=== PATIENT | male | born 1975 | race African-American/Black ===

== ENCOUNTER 2017-06-01 15:48 | Emergency (ER) | payer MEDICARE, MEDICAID ==
[2017-06-01 15:53] VITALS: BP 142/98
[2017-06-01] MEDS ORDERED: CEPHALEXIN 500 MG CAPSULE PO ONE (16:30)
--- NOTE | 2017-06-01 16:33 | ER Document Report ---
ED General - General Chief Complaint: Post Surgical Pain Stated Complaint: SUTURE CHECK Time Seen by Provider: 06/01/17 16:29 Notes: 42 years old male was on peritoneal dialysis, permacatheter was removed couple of days ago from the left side of the abdomen. The scar is still visible and he noted some discharge from the skin therefore concerned and came to the ED. Has some tenderness otherwise no fever chills or other constitutional symptoms. He had dialysis yesterday TRAVEL OUTSIDE OF THE [place] IN LAST 30 DAYS: No - Related Data Allergies/Adverse Reactions: sulfamethoxazole [From Bactrim] Adverse Reaction (Intermediate, Verified 15:48) trimethoprim [From Bactrim] Adverse Reaction (Intermediate, Verified 06/01/17 15 :48) Past Medical History - Social History Smoking Status: Former Smoker Chew tobacco use (# tins/day): No Frequency of alcohol use: None Drug Abuse: None Family History: Hypertension, Malignancy, Other - Adult Polycystic Kidney Disease Patient has suicidal ideation: No Patient has homicidal ideation: No - Past Medical History Cardiac Medical History: Reports: Hx Atrial Fibrillation, Hx Hypercholesterolemia, Hx Hypertension Denies: Hx Heart Murmur Pulmonary Medical History: Denies: Hx Tuberculosis Renal/ Medical History: Reports: Hx End Stage Renal Disease - dialysis TTHSat. Denies: Hx Peritoneal Dialysis GI Medical History: Reports: Hx Gastritis Musculoskeltal Medical History: Reports Hx Musculoskeletal Trauma Traumatic Medical History: Reports: Hx Fractures - RIGHT FEMUR Past Surgical History: Reports: Hx Abdominal Surgery, Hx Orthopedic Surgery - R femur, Hx Umbilical Hernia, Hx Vascular Surgery - L lung - Immunizations Immunizations up to date: Yes Hx Diphtheria, Pertussis, Tetanus Vaccination: Yes Review of Systems - Review of Systems Notes: REVIEW OF SYSTEMS: CONSTITUTIONAL : Denies fever, chills, or sweats. Denies recent illness. EENT: Denies eye, ear, throat, or mouth pain or symptoms. Denies nasal or sinus congestion or discharge. Denies throat, tongue, or mouth swelling or difficulty swallowing. CARDIOVASCULAR: Denies chest pain. Denies palpitations or racing or irregular heart beat. Denies ankle edema. RESPIRATORY: Denies cough, cold, or chest congestion. Denies shortness of breath, difficulty breathing, or wheezing. GASTROINTESTINAL: Denies abdominal pain or distention. Denies nausea, vomiting , or diarrhea. Denies blood in vomitus, stools, or per rectum. Denies black, tarry stools. Denies constipation. GENITOURINARY: Denies difficulty urinating, painful urination, burning, frequency, blood in urine, or discharge. MUSCULOSKELETAL: Denies back or neck pain or stiffness. Denies joint pain or swelling. SKIN: As per complain HEMATOLOGIC : Denies easy bruising or bleeding. LYMPHATIC: Denies swollen, enlarged glands. NEUROLOGICAL: Denies confusion or altered mental status. Denies passing out or loss of consciousness. Denies dizziness or lightheadedness. Denies headache. Denies weakness or paralysis or loss of use of either side. Denies problems with gait or speech. Denies sensory loss, numbness, or tingling. Denies seizures. PSYCHIATRIC: Denies anxiety or stress. Denies depression, suicidal ideation, or homicidal ideation. ALL OTHER SYSTEMS REVIEWED AND NEGATIVE. Dictation was performed using [employer] voice recognition software PHYSICAL EXAMINATION: GENERAL: Muscle wasting cachexia and abdominal distention noted HEAD: Atraumatic, normocephalic. EYES: Pupils equal round and reactive to light, extraocular movements intact, sclera anicteric, conjunctiva are normal. ENT: Nares patent, oropharynx clear without exudates. Moist mucous membranes. NECK: Normal range of motion, supple without lymphadenopathy LUNGS: Breath sounds clear to auscultation bilaterally and equal. No wheezes rales or rhonchi. HEART: Regular rate and rhythm without murmurs ABDOMEN: Soft, distended, left upper quadrant there is a 3 cm surgical scar noted half of it has healed well, rest of the half is open and erythematous, no purulent discharge noted. No surrounding erythema or tenderness. Musculoskeletal: Normal range of motion, no pitting or edema. No cyanosis. NEUROLOGICAL: Cranial nerves grossly intact. Normal speech, normal gait. Normal sensory, motor exams PSYCH: Normal mood, normal affect. SKIN: Dry scaly skin Physical Exam - Vital signs Vitals: Temp Pulse Resp BP Pulse Ox 98.1 F 84 20 142/98 H 100 06/01/17 15:53 06/01/17 15:53 06/01/17 15:53 06/01/17 15:53 06/01/17 15:53 Course - Vital Signs Vital signs: Temp Pulse Resp BP Pulse Ox 98.1 F 84 20 142/98 H 100 06/01/17 15:53 06/01/17 15:53 06/01/17 15:53 06/01/17 15:53 06/01/17 15:53 Discharge - Discharge Clinical Impression: Wound infection after surgery Qualifiers: Encounter type: initial encounter Qualified Code(s): T81.4XXA - Infection following a procedure, initial encounter Condition: Good Disposition: HOME, SELF-CARE Instructions: Care of Stapled Wounds ([facility]) Prescriptions: Cephalexin Monohydrate [Keflex 500 mg Capsule] 500 mg PO Q6H 10 Days capsule
== END 2017-06-01 16:46 | disposition home or self-care (01) ==
LOC: ER 15:48
DX: T81.4XXA Infection following a procedure, initial encounter (principal); G89.18 Other acute postprocedural pain; Z87.891 Personal history of nicotine dependence
CPT/HCPCS: 99283; A9270

== ENCOUNTER 2017-12-30 04:49 | Emergency (ER) | payer MEDICARE, MEDICAID ==
--- NOTE | 2017-12-30 05:52 | ER Document Report ---
ED Medical Screen (RME) - General Chief Complaint: Respiratory Distress Stated Complaint: RESPIRATORY DISTRESS Time Seen by Provider: 12/30/17 05:50 Mode of Arrival: Medic Information source: Patient Notes: Patient is a 42-year-old male who presents with chief complaint of shortness of breath. Patient reports that he is a dialysis patient and missed his appointment on Sunday. Patient was last dialyzed on Sunday. Patient reports that he was feeling fine when he went to sleep last night however he woke up at 340 this morning with severe shortness of breath. Patient is alert, oriented and speaking in full and complete sentences. Patient denies any other complaints other than shortness of breath, patient reports shortness of breath is worse when he lies down. I have greeted and performed a rapid initial assessment of this patient. A comprehensive ED assessment and evaluation of the patient, analysis of test results and completion of the medical decision making process will be conducted by additional ED providers. Dictation of this chart was performed using voice recognition software; therefore, there may be some unintended grammatical errors. TRAVEL OUTSIDE OF THE [place] IN LAST 30 DAYS: No - Related Data Allergies/Adverse Reactions: sulfamethoxazole [From Bactrim] Adverse Reaction (Intermediate, Verified 15:48) trimethoprim [From Bactrim] Adverse Reaction (Intermediate, Verified 06/01/17 15 :48) Past Medical History - Social History Family history: Reviewed & Not Pertinent - Past Medical History Cardiac Medical History: Reports: Hx Atrial Fibrillation, Hx Hypercholesterolemia, Hx Hypertension Denies: Hx Heart Murmur Pulmonary Medical History: Denies: Hx Tuberculosis Renal/ Medical History: Reports: Hx End Stage Renal Disease - dialysis TTHSat. Denies: Hx Peritoneal Dialysis - pt on hemodialysis GI Medical History: Reports: Hx Gastritis Musculoskeltal Medical History: Reports Hx Musculoskeletal Trauma Traumatic Medical History: Reports: Hx Fractures - RIGHT FEMUR Past Surgical History: Reports: Hx Abdominal Surgery, Hx Orthopedic Surgery - R femur, Hx Umbilical Hernia, Hx Vascular Surgery - L lung - Immunizations Immunizations up to date: Yes Hx Diphtheria, Pertussis, Tetanus Vaccination: Yes Doctor's Discharge - Discharge Referrals: Nik ROB MD [Primary Care Provider] - Follow up as needed
[2017-12-30 06:13] LABS: ABSOLUTE BASOPHILS # (AUTO) 0.1 10^3/uL (0.0-0.2); ABSOLUTE EOSINOPHILS # (AUTO) 0.4 10^3/uL (0.0-0.6); ABSOLUTE LYMPHOCYTES (AUTO) 1.9 10^3/uL (0.5-4.7); ABSOLUTE MONOCYTES (AUTO) 0.4 10^3/uL (0.1-1.4); ABSOLUTE NEUT (AUTO) 3.5 10^3/uL (1.7-8.2); BASOPHILS % (AUTO) 2.1 % (0-2); EOSINOPHILS % (AUTO) 6.2 % (0-6); HEMATOCRIT 31.9 % (37.9-51.0); HEMOGLOBIN 10.1 g/dL (13.5-17.0); LYMPHOCYTES % (AUTO) 30.1 % (13-45); MEAN CORPUSCULAR HEMOGLOBIN 24.1 pg (27.0-33.4); MEAN CORPUSCULAR HGB CONC 31.7 g/dL (32.0-36.0); MEAN CORPUSCULAR VOLUME 76 fl (80-97); MONOCYTES % (AUTO) 6.2 % (3-13); RED CELL DISTRIBUTION WIDTH 21.6 % (11.5-14.0); SEGMENTED NEUTROPHILS % (AUTO) 55.4 % (42-78); TOTAL CELLS COUNTED % (AUTO) 100 %; WHITE BLOOD COUNT 6.4 10^3/uL (4.0-10.5)
[2017-12-30 06:29] LABS: ALANINE AMINOTRANSFERASE 20 U/L (21-72); ALBUMIN 4.1 g/dL (3.5-5.0); ALKALINE PHOSPHATASE 80 U/L (38-126); ASPARTATE AMINO TRANSFERASE 18 U/L (17-59); BILIRUBIN,DIRECT 0.4 mg/dL (0.0-0.4); BILIRUBIN,TOTAL 0.4 mg/dL (0.2-1.3); BLOOD UREA NITROGEN 78 mg/dL (7-20); CALCIUM 7.7 mg/dL (8.4-10.2); CREATINE KINASE 196 U/L (55-170); GLUCOSE 85 mg/dL (75-110); POTASSIUM 5.4 mmol/L (3.6-5.0); TOTAL PROTEIN 7.8 g/dL (6.3-8.2)
[2017-12-30 06:34] LABS: ANION GAP 18 (5-19); CARBON DIOXIDE 26 mmol/L (22-30); CHLORIDE 101 mmol/L (98-107)
--- NOTE | 2017-12-30 06:35 | RADIOLOGY REPORT (SQ) ---
EXAM DESCRIPTION: XR CHEST 1 VIEW COMPLETED DATE/TME: 12/30/2017 05:50 CLINICAL HISTORY: dialysis pt, sob COMPARISON: 05/19/2015 FINDINGS: Single frontal view of the chest. Cardiomegaly. Right IJ tunneled hemodialysis catheter with tip in SVC. Pulmonary vascular congestion. Pulmonary edema. Small bilateral pleural effusions. No pneumothorax. No acute osseous abnormalities. Upper abdominal soft tissues are unremarkable. IMPRESSION: 1. Cardiomegaly with pulmonary edema and small bilateral pleural effusions.
[2017-12-30 06:42] LABS: CREATINE KINASE MB 3.72 ng/mL (<4.55); TROPONIN I 0.049 ng/mL
[2017-12-30 06:46] LABS: PLATELET COUNT 146 10^3/uL (150-450)
--- NOTE | 2017-12-30 08:20 | ER Document Report ---
ED General - General Chief Complaint: Respiratory Distress Stated Complaint: RESPIRATORY DISTRESS Time Seen by Provider: 12/30/17 05:50 Mode of Arrival: Medic TRAVEL OUTSIDE OF THE [place] IN LAST 30 DAYS: No - HPI Patient complains to provider of: Respiratory distress Notes: Patient was brought in via EMS respiratory stress prior to arrival. Patient is a renal dialysis patient who recently has renal dialysis switch from Sunday to Sunday. Patient states he missed his dialysis on Sunday because of having a prior arrangement. Patient states woke up earlier this morning with shortness of breath normally wears 2 L of oxygen currently is on four due to shortness of breath states that he is now feeling better speaking in complete sentences no signs of any obvious distress denies any fevers chills nausea vomiting diarrhea cough or sputum production. - Related Data Allergies/Adverse Reactions: sulfamethoxazole [From Bactrim] Adverse Reaction (Intermediate, Verified 15:48) trimethoprim [From Bactrim] Adverse Reaction (Intermediate, Verified 06/01/17 15 :48) Past Medical History - General Information source: Patient - Social History Smoking Status: Current Every Day Smoker Family History: Hypertension, Malignancy, Other - Adult Polycystic Kidney Disease Patient has suicidal ideation: No Patient has homicidal ideation: No - Past Medical History Cardiac Medical History: Reports: Hx Atrial Fibrillation, Hx Hypercholesterolemia, Hx Hypertension Denies: Hx Heart Murmur Pulmonary Medical History: Denies: Hx Tuberculosis Renal/ Medical History: Reports: Hx End Stage Renal Disease - dialysis TTHSat. Denies: Hx Peritoneal Dialysis - pt on hemodialysis GI Medical History: Reports: Hx Gastritis Musculoskeletal Medical History: Reports Hx Musculoskeletal Trauma Traumatic Medical History: Reports: Hx Fractures - RIGHT FEMUR Past Surgical History: Reports: Hx Abdominal Surgery, Hx Orthopedic Surgery - R femur, Hx Umbilical Hernia, Hx Vascular Surgery - L lung - Immunizations Immunizations up to date: Yes Hx Diphtheria, Pertussis, Tetanus Vaccination: Yes Review of Systems - Review of Systems Constitutional: No symptoms reported EENT: No symptoms reported Cardiovascular: No symptoms reported Respiratory: Short of breath Gastrointestinal: No symptoms reported Genitourinary: No symptoms reported Male Genitourinary: No symptoms reported Musculoskeletal: No symptoms reported Skin: No symptoms reported Hematologic/Lymphatic: No symptoms reported Neurological/Psychological: No symptoms reported -: Yes All other systems reviewed and negative Physical Exam - Vital signs Vitals: Pulse BP Pulse Ox 82 165/104 H 100 12/30/17 04:55 12/30/17 04:55 12/30/17 04:55 Interpretation: Normal - General General appearance: Appears well, Alert - HEENT Head: Normocephalic, Atraumatic Eyes: Normal Pupils: PERRL - Respiratory Respiratory status: No respiratory distress Chest status: Nontender Breath sounds: Normal, Rales Chest palpation: Normal - Cardiovascular Rhythm: Regular Heart sounds: Normal auscultation Murmur: No - Abdominal Inspection: Normal Distension: No distension Bowel sounds: Normal Tenderness: Nontender Organomegaly: No organomegaly - Back Back: Normal, Nontender - Extremities General upper extremity: Normal inspection, Nontender, Normal color, Normal ROM , Normal temperature General lower extremity: Normal inspection, Nontender, Normal color, Normal ROM , Normal temperature, Normal weight bearing. No: Deshaun's sign - Neurological Neuro grossly intact: Yes Cognition: Normal Orientation: AAOx4 [place] Coma Scale Eye Opening: Spontaneous [place] Coma Scale Verbal: Oriented [place] Coma Scale Motor: Obeys Commands [place] Coma Scale Total: 15 Speech: Normal Motor strength normal: LUE, RUE, LLE, RLE Sensory: Normal - Psychological Associated symptoms: Normal affect, Normal mood - Skin Skin Temperature: Warm Skin Moisture: Dry Skin Color: Normal Course - Re-evaluation Re-evalutation: 12/30/17 08:18 Discussed with supervisor belt and link assembly Dr. Vogt unfortunately at this time we do not have access to dialysis to be performed here in the hospital or in the ER. Do believe patient will necessitate dialysis as a chest x-ray shows fluid overload did not think it is safe to discharge the patient home at this time. Patient states he has been to the inhaler in the past. Will call [facility] to see if we can necessitate transportation for dialysis. 12/30/17 11:[address] Malone supervisor belt and link assembly at [facility] reduce that the patient in transfer. Stated understanding is concerned is that the patient has vascular congestion changes with pleural effusions bilaterally are he developed did not think the patient will be able to wait to his dialysis on Sunday and a center that does not have really access to emergent dialysis. States in agreement with plan to notify the patient of the transfer. Patient later stating that if he was seriously ill enough that we very transferred him by this time. I explained to the patient that chest x-ray does show vascular congestion I do not believe that he will be able to hold off for his dialysis Sunday morning at 6:00. The patient will need to go to a facility actually will have dialysis readily available for him leaving at this time could cause the patient to go into further respiratory failure or distress requiring intubation and possibly . Patient states understanding of all the risks and is requesting him to be transferred this time to be discharged home. Patient signed out AGAINST MEDICAL ADVICE after the patient left we did contact [facility] unfortunately have already dispensed a truck however we did cancel transfer. The patient has decided not to proceed with further recommended testing or treatment to determine the cause of their symptoms. The risks and alternatives to the recommendation were discussed and the patient voiced understanding. The patient appears clinically to have capacity to make this decision. The patient was instructed that he/she could return to the ER at any time to complete the testing or treatment.. - Vital Signs Vital signs: Temp Pulse Resp BP Pulse Ox 97.9 F 72 19 140/90 H 100 12/30/17 05:08 12/30/17 05:00 12/30/17 10:00 12/30/17 09:01 12/30/17 09:01 - Laboratory Result Diagrams: 12/30/17 05:14 12/30/17 05:14 Laboratory results interpreted by me: 12/30/17 12/30/17 12/30/17 05:14 05:14 05:14 RBC 4.20 L Hgb 10.1 L Hct 31.9 L MCV 76 L MCH 24.1 L MCHC 31.7 L RDW 21.6 H Plt Count 146 L Eosinophils % 6.2 H Basophils % 2.1 H Potassium 5.4 H BUN 78 H Creatinine 12.25 H Est GFR ( Amer) 6 L Est GFR (Non-Af Amer) 5 L Calcium 7.7 L ALT 20 L Creatine Kinase 196 H NT-Pro-B Natriuret Pep 59704 H Discharge - Discharge Clinical Impression: End stage renal disease Fluid overload Qualifiers: Hypervolemia type: unspecified Qualified Code(s): E87.70 - Fluid overload, unspecified Disposition: AGAINST MEDICAL ADVICE Additional Instructions: Your evaluated today for shortness of breath due to fluid overload from lack of dialysis. We have arranged for you to be transferred to [facility] as that we did not have dialysis here today. He stated this time she did not want to be transferred that she would rather go home. He stated understanding that her chest x-ray does showed fluid overload which can cause significant shortness of breath respiratory failure and/or if accepted these risk and are still willing to sign out AGAINST MEDICAL ADVICE. I would highly recommend if your conditions worsen to return to ER immediately Please go to your dialysis session tomorrow morning if you do not develop respiratory failure. Referrals: Nik VOGT MD [Primary Care Provider] - Follow up as needed
--- NOTE | 2017-12-30 08:22 | EKG REPORT ---
SEVERITY:- ABNORMAL ECG - SINUS RHYTHM CONSIDER LEFT VENTRICULAR HYPERTROPHY ABNORMAL T, CONSIDER ISCHEMIA, DIFFUSE LEADS : Confirmed by: Mercedes Celaya MD 30-Dec-2017 08:21:52
[2017-12-30 09:10] VITALS: BP 140/90
== END 2017-12-30 10:28 | disposition left against medical advice (07) ==
LOC: ER 04:49
DX: I12.0 Hypertensive chronic kidney disease with stage 5 chronic kidney disease or end stage renal disease (principal); N18.6 End stage renal disease; E87.70 Fluid overload, unspecified; R06.03 Acute respiratory distress; R06.02 Shortness of breath; Z99.81 Dependence on supplemental oxygen; Z99.2 Dependence on renal dialysis; F17.200 Nicotine dependence, unspecified, uncomplicated
CPT/HCPCS: 36415; 71045; 80053; 82550; 82553; 83880; 84484; 85025; 93005; 93010; 99285